=== PATIENT | male | born 1985 | race Caucasian/White ===

== ENCOUNTER 2022-05-31 21:26 | Emergency (ER) | payer SELFPAY ==
[2022-05-31] MEDS ORDERED: Sodium Chloride 0.9% 10 ML Syringe FLUSH PRN ×2 (22:29→22:31)
[2022-05-31] MEDS ORDERED: cefTRIAXone 2 GM Vial IVPUSH ONE (22:31)
[2022-05-31] MEDS ORDERED: Doxycycline 100 MG Tab PO ONE (22:31)
[2022-05-31 22:52] LABS: ESTIMATED GFR 99 mL/min (>60)
[2022-06-01] MEDS ORDERED: Iopamidol 755 Mg/ML 200 ML Bottle IV ONE (00:29)
== END 2022-06-01 02:00 ==
LOC: FB.ED 21:26
DX: N49.2 Inflammatory disorders of scrotum (principal); Z72.0 Tobacco use
CPT/HCPCS: 36415; 72193; 80048; 81001; 83605; 85025; 87086; 96374; 99285-25; A9270-GY; J0696; J3490; Q9967